=== PATIENT | male | born 1970 | race Hispanic/Latino ===

== ENCOUNTER 2022-06-07 15:12 | Emergency (ER) | payer OTHER ==
[2022-06-07] MEDS ORDERED: Boostrix 0.5 ML (Tdap) VIAL (>/=7 yrs of age) ONE (16:40)
[2022-06-07] MEDS ORDERED: Bupivacaine 0.25% 10 ML VIAL ONE (17:37)
[2022-06-07] MEDS ORDERED: Bupivacaine PF 0.5% 30 ML VIAL SC SCH (18:00)
[2022-06-07] MEDS ORDERED: Bacitracin 1 PK ONE (18:12)
== END 2022-06-07 19:58 | disposition home or self-care (01) ==
LOC: ERS 15:12
DX: S68.623A Partial traumatic transphalangeal amputation of left middle finger, initial encounter (principal); S68.625A Partial traumatic transphalangeal amputation of left ring finger, initial encounter; W26.8XXA Contact with other sharp object(s), not elsewhere classified, initial encounter; Z23 Encounter for immunization
CPT/HCPCS: 90471; 90715; 96372; S0020